=== PATIENT | male | born 1960 | race Caucasian/White ===

== ENCOUNTER 2022-10-10 14:36 | Outpatient (CLI) | payer BC ==
[2022-10-10 15:14] LABS: Hemoglobin 16.4 g/dL (13.5-17.5); Mean Corpuscular HGB CONC 34.9 g/dL (32.0-36.0); Mean Corpuscular Hemoglobin 32.4 pg (27.0-33.0); Mean Corpuscular Volume 92.9 fl (81.2-95.1); Mean Platelet Volume 9.9 fl (7.4-10.4); Platelet Count 240 10x3/uL (150-450); RBC Distribution Width 13.5 % (11.5-14.5); Red Blood Cell (RBC) Count 5.06 10x6/uL (4.32-5.72); White Blood Cell (WBC) Count 7.2 10x3/uL (3.5-10.5)
[2022-10-10 15:41] LABS: Anion Gap 15 mmol/L (10-20); BUN (Urea Nitrogen) 23 mg/dL (8.4-25.7); Calc. Creatinine Clearance 0 mL/min (70-130); Calcium 9.7 mg/dL (7.8-10.44); Carbon Dioxide 24 mmol/L (22-29); Chloride 104 mmol/L (98-107); Estimated GFR 51; Glucose 89 mg/dL (70-105); Potassium 4.1 mmol/L (3.5-5.1); Sodium 139 mmol/L (136-145)
== END 2022-10-10 14:37 | disposition home or self-care (01) ==
LOC: CSHLAB 14:36
PROVIDERS: ATTEND Surgery
DX: Z01.812 Encounter for preprocedural laboratory examination (principal); K43.2 Incisional hernia without obstruction or gangrene
CPT/HCPCS: 80048; 85027

== ENCOUNTER 2022-10-12 06:27 | Day surgery (SDC) | payer BC ==
[2022-10-11 09:02] VITALS: BMI 25.2
[2022-10-12] MEDS ORDERED: Bupivacaine PF 0.5% 30 ML VIAL ONE (08:58)
[2022-10-12] MEDS ORDERED: EPINEPHrine 1 MG/ML AMP ONE (08:58)
[2022-10-12] MEDS ORDERED: Lidocaine 1% PF 5 ML VIAL ONE (09:08)
[2022-10-12] MEDS ORDERED: Ondansetron PF 4 MG/2 ML Vial ONE (09:08)
[2022-10-12] MEDS ORDERED: Rocuronium Bromide 10 MG/ML (10ML VIAL) ONE (09:08)
[2022-10-12] MEDS ORDERED: Dexamethasone 4 mg/ml Vial ONE (09:08)
[2022-10-12] MEDS ORDERED: Esmolol 100 MG/10 ML VIAL ONE (09:08)
[2022-10-12] MEDS ORDERED: SUGAMMADEX SODIUM 200 MG/2 ML VIAL ONE (09:15)
[2022-10-12] MEDS ORDERED: HYDROmorphone 0.5 MG/0.5 ML SYRINGE ONE (09:15)
[2022-10-12] MEDS ORDERED: Clindamycin/D5W 600 mg/50 ml Premix Bag ONE (09:21)
[2022-10-12] MEDS ORDERED: Labetalol HCl 100 MG/20 ML VIAL ONE (09:56)
[2022-10-12] MEDS ORDERED: Ketorolac Tromethamine 30 MG/ML VIAL ONE (10:47)
[2022-10-12] MEDS ORDERED: Fentanyl 100 MCG/2 ML VIAL ONE (11:18)
[2022-10-12] MEDS ORDERED: HYDROcodone/Acetaminophen 5/325 mg Tablet PO PRN (11:22)
== END 2022-10-12 12:50 | disposition home or self-care (01) ==
LOC: CSHSDC 06:27
PROVIDERS: ATTEND Surgery
PROC: 0WUF4JZ Supplement Abdominal Wall with Synthetic Substitute, Percutaneous Endoscopic Approach (ICD-10-PCS; principal; 2022-10-12)
DX: K43.2 Incisional hernia without obstruction or gangrene (principal); J44.9 Chronic obstructive pulmonary disease, unspecified; I25.10 Atherosclerotic heart disease of native coronary artery without angina pectoris; I10 Essential (primary) hypertension; F32.A Depression, unspecified; M19.90 Unspecified osteoarthritis, unspecified site; Z87.442 Personal history of urinary calculi; Z86.73 Personal history of transient ischemic attack (TIA), and cerebral infarction without residual deficits; Z79.82 Long term (current) use of aspirin; Z79.02 Long term (current) use of antithrombotics/antiplatelets; Z79.899 Other long term (current) drug therapy; Z87.891 Personal history of nicotine dependence; Z88.0 Allergy status to penicillin; Z88.8 Allergy status to other drugs, medicaments and biological substances; Z98.890 Other specified postprocedural states
CPT/HCPCS: C1781; J0171; J1100; J1170; J1885; J2405; J3010; J3490; S0020

== ENCOUNTER 2023-09-03 15:16 | Outpatient (CLI) | payer BC | END 2023-09-03 15:17 | disposition home or self-care (01) | LOC: CSHCP 15:16 | PROVIDERS: ATTEND Internal Medicine | DX: Z12.2 Encounter for screening for malignant neoplasm of respiratory organs (principal); J43.9 Emphysema, unspecified; J44.9 Chronic obstructive pulmonary disease, unspecified | CPT/HCPCS: 94060; 94664; 94726; 94729; 94760 ==